=== PATIENT | male | born 1930 | race African-American/Black ===

== ENCOUNTER 2018-05-07 12:41 | Inpatient (IN) | payer MEDICARE ==
[~2018-05-07] VITALS: Ht 170.2 cm; Wt 120.7 kg
[~2018-05-07 12:41] MED LIST: ALLOPURINOL PO; ATENOLOL PO; GLIPIZIDE PO; MELOXICAM; NIFEDIPINE PO
[2018-05-07] MEDS ORDERED: HYDROCODONE/ACETAMINOPHEN 5/325MG TABLET PO ONE (13:45)
[2018-05-07] MEDS ORDERED: KETOROLAC 30MG/ML VIAL IM ONE (13:45)
[2018-05-07 15:03] LABS: CHLORIDE 111 mEq/L (98-107)
[2018-05-07 15:10] LABS: BASOPHILS % 0.5 % (0.0-2.0); EOSINOPHILS % 1.3 % (0.0-5.0); HEMATOCRIT. 30.2 % (42.0-52.0); HEMOGLOBIN. 10.4 g/dL (14.0-18.0); LYMPHOCYTES % 14.6 % (20.0-50.0); MEAN CORPUSCULAR HEMOGLOBIN 28.9 pg (28.0-32.0); MEAN CORPUSCULAR VOLUME 84.3 fL (80.0-94.0); MEAN PLATELET VOLUME 9.5 fl (7.4-10.4); MONOCYTES % 6.8 % (2.0-8.0); NEUTROPHILS % 76.8 % (40.0-76.0); PLATELET 249 x1000/uL (130-400); RED BLOOD CELL COUNT 3.59 mill/uL (4.7-6.1); RED CELL DISTRIBUTION WIDTH 16.7 % (11.6-14.6)
[2018-05-07 15:26] LABS: PARTIAL THROMBOPLASTIN TIME 109.1 sec (23.4-31.0)
[2018-05-07] MEDS ORDERED: ACETAMINOPHEN 325MG TABLET PO PRN (19:00)
[2018-05-07] MEDS ORDERED: DOCUSATE SODIUM 100MG CAPSULE PO PRN (19:00)
[2018-05-07] MEDS ORDERED: ONDANSETRON HCL 4MG/2ML INJ IV PRN (19:00)
[2018-05-07] MEDS ORDERED: SODIUM CHLORIDE 0.45% 1,000 ML IV SCH (20:52)
[2018-05-07 21:28] LABS: BG BASE EXCESS -6.5 mmol/L (-2.0-2.0); BG CARBOXYHEMOGLOBIN 0.3 % (0.5-1.5); BG DEOXYHEMOGLOBIN 5.5 % (0.0-5.0); BG FRACTION INSPIRED OXYGEN 21; BG HCO3 ACT 19.3 mmol/L (22.0-26.0); BG METHEMOGLOBIN 0.3 % (0.0-1.5); BG OXYGEN SATURATION 94.5 % (92.0-98.5); BG OXYHEMOGLOBIN 93.9 % (94.0-97.0); BG PCO2 39.3 mmHg (35.0-45.0); BG PH 7.308 (7.350-7.450); BG PO2 78.7 mmHg (75.0-100.0); BG SAMPLE SITE RIGHT RADIAL; BG TOTAL HEMOGLOBIN 10.5 g/dL (12.0-18.0); BG VENT MODE ROOM AIR
[2018-05-07 22:00] VITALS: BP_SYST 172; BP_SYST 174; BP_DIAS 90
[2018-05-07] MEDS ORDERED: IPRATROPIUM/ALBUTEROL 0.5-3(2.5)MG/3ML NEB HHN NR (23:00)
[2018-05-07] MEDS: ATENOLOL 50 MG TABLET PO SCH (23:46)
[2018-05-07] MEDS: NIFEDIPINE XL 60MG TAB PO SCH (23:47)
[2018-05-08] VITALS: BP 155/66
[2018-05-08] MEDS ORDERED: LEVOFLOXACIN 500MG PREMIX 100 ML IV NR
[2018-05-08] MEDS: IPRATROPIUM/ALBUTEROL 0.5-3(2.5)MG/3ML NEB HHN SCH ×2 (04:48→15:19)
[2018-05-08 05:45] VITALS: BP 155/70
[2018-05-08] MEDS ORDERED: DEXTROSE 50% WATER 50ML SYRINGE IV PRN (06:00)
[2018-05-08] MEDS: BLOOD SUGAR DIAGNOSTIC STRIP TEST SCH ×2 (06:30→11:33)
[2018-05-08] MEDS: INSULIN LISPRO 100 UNITS/ML SUBCUT SCH ×2 (06:31→12:10)
[2018-05-08] MEDS: SODIUM CHLORIDE 0.9% INJ 3ML FLUSH IVF SCH ×2 (06:33→14:01)
[2018-05-08 06:44] LABS: HEMATOCRIT. 30.4 % (42.0-52.0); HEMOGLOBIN. 10.3 g/dL (14.0-18.0); MEAN CORPUSCULAR HEMOGLOBIN 28.9 pg (28.0-32.0); MEAN PLATELET VOLUME 9.5 fl (7.4-10.4); PLATELET 237 x1000/uL (130-400); RED BLOOD CELL COUNT 3.57 mill/uL (4.7-6.1); RED CELL DISTRIBUTION WIDTH 17.1 % (11.6-14.6)
[2018-05-08 07:09] LABS: PHOSPHORUS 5.1 mg/dL (2.5-4.9)
[2018-05-08 08:05] VITALS: BP 151/56
[2018-05-08] MEDS ORDERED: ALLOPURINOL 100 MG TABLET PO SCH (09:00)
[2018-05-08] MEDS ORDERED: FAMOTIDINE 20MG/2ML VIAL IV SCH (09:00)
[2018-05-08] MEDS ORDERED: BUDESONIDE 0.5MG/2ML NEB HHN SCH (09:00)
[2018-05-08] MEDS: NIFEDIPINE XL 60MG TAB PO SCH (09:10)
[2018-05-08] MEDS: ATENOLOL 50 MG TABLET PO SCH (09:11)
[2018-05-08 11:15] LABS: CLARITY URINE TURBID (CLEAR); COLOR URINE YELLOW (YELLOW); KETONES URINE NEGATIVE (NEGATIVE); LEUKOCYTE ESTERASE URINE 3+ (NEGATIVE); NITRITE URINE NEGATIVE (NEGATIVE); OCCULT BLOOD URINE 2+ (NEGATIVE); PROTEIN URINE 3+ (NEGATIVE); SPECIFIC GRAVITY URINE 1.015 (1.005-1.030); UROBILINOGEN URINE 0.2 E.U./dL (0.2-1.0)
[2018-05-08 11:57] LABS: *AMPHETAMINES SCREEN URINE NEGATIVE (NEGATIVE); *BARBITURATES SCREEN URINE NEGATIVE (NEGATIVE)
[2018-05-08 11:58] LABS: *BENZODIAZEPINES SCREEN URINE NEGATIVE (NEGATIVE); *COCAINE SCREEN URINE NEGATIVE (NEGATIVE); CANNABINOID URINE SCREEN NEGATIVE (NEGATIVE); OPIATES URINE SCREEN PRESUMTIVE POSITIVE (NEGATIVE); PHENCYCLIDINE URINE SCREEN NEGATIVE (NEGATIVE)
[2018-05-08 12:05] VITALS: BP_SYST 137; BP_SYST 146; BP_DIAS 55; BP_DIAS 59
[2018-05-08 12:12] LABS: METHADONE URINE SCREEN NEGATIVE (NEGATIVE)
[2018-05-08 12:49] LABS: PLATELET ESTIMATE NORMAL
[2018-05-08 16:02] VITALS: BP 146/65
[2018-05-08 16:40] VITALS: BP 146/65
[2018-05-08] MEDS ORDERED: SODIUM BICARBONATE 650 MG TABLET PO SCH (17:00)
[2018-05-08] MEDS ORDERED: NIFEDIPINE XL 60MG TAB PO SCH (17:00)
[2018-05-08] MEDS ORDERED: HYDRALAZINE HCL 25MG TABLET PO SCH (21:00)
[2018-05-08] MEDS ORDERED: GABAPENTIN 100MG CAPSULE PO SCH (21:00)
[2018-05-09] MEDS ORDERED: FUROSEMIDE 40MG TABLET PO SCH (09:00)
[2018-05-09] MEDS ORDERED: ALLOPURINOL 100 MG TABLET PO SCH (09:00)
[2018-05-09] MEDS ORDERED: FOLIC ACID/VITAMIN B COMP W-C TABLET PO SCH (09:00)
[2018-05-10] MEDS ORDERED: LEVOFLOXACIN 250MG PREMIX 50 ML IV SCH
[2018-05-12 09:06] LABS: FACTOR IX ACTIVITY 142 % (60-177); FACTOR VIII ACTIVITY 159 % (57-163); VON WILLEBRAND FACTOR ANTIGEN 277 % (50-200)
== END 2018-05-08 17:35 | disposition home or self-care (01) | DRG 682 ==
LOC: ER 12:41 → 6EST 17:41 → EDBEDREQ 17:43 → EDBEDREQTM 17:43 → SUPCPDRO 19:26 → ENRESERV 20:39 → 6WST 05-08 05:15
PROVIDERS: ADMIT Internal Medicine; ATTEND Internal Medicine
DX: N17.9 Acute kidney failure, unspecified (principal); I50.23 Acute on chronic systolic (congestive) heart failure; N39.0 Urinary tract infection, site not specified; J44.1 Chronic obstructive pulmonary disease with (acute) exacerbation; I13.2 Hypertensive heart and chronic kidney disease with heart failure and with stage 5 chronic kidney disease, or end stage renal disease; R65.10 Systemic inflammatory response syndrome (SIRS) of non-infectious origin without acute organ dysfunction; R07.89 Other chest pain; D63.8 Anemia in other chronic diseases classified elsewhere; E11.22 Type 2 diabetes mellitus with diabetic chronic kidney disease; E11.65 Type 2 diabetes mellitus with hyperglycemia; D64.9 Anemia, unspecified; M10.9 Gout, unspecified; D72.829 Elevated white blood cell count, unspecified; E66.01 Morbid (severe) obesity due to excess calories; E87.5 Hyperkalemia; F17.200 Nicotine dependence, unspecified, uncomplicated; H54.61 Unqualified visual loss, right eye, normal vision left eye; I25.10 Atherosclerotic heart disease of native coronary artery without angina pectoris; I35.0 Nonrheumatic aortic (valve) stenosis; K76.0 Fatty (change of) liver, not elsewhere classified; N18.9 Chronic kidney disease, unspecified; R79.1 Abnormal coagulation profile; Z83.3 Family history of diabetes mellitus; Z88.0 Allergy status to penicillin; V89.2XXA Person injured in unspecified motor-vehicle accident, traffic, initial encounter; Y93.89 Activity, other specified; Y92.89 Other specified places as the place of occurrence of the external cause; Y99.8 Other external cause status
CPT/HCPCS: 36415; 36600; 71045; 71110; 76700; 80048; 80305; 82375; 82805; 82962; 83735; 83880; 84100; 84443; 84484; 84550; 85240; 85246; 85247; 85250; 85270; 85732; 86038; 87804; 93005; 93306; 93970; 94640; 96372; 97162; 99285; J1885; J1956; J3490; J7620; J7626

== ENCOUNTER 2018-09-16 16:51 | Inpatient (IN) | payer MEDICARE ==
[~2018-09-16] VITALS: Ht 167.6 cm; Wt 120.3 kg
[~2018-09-16 16:51] MED LIST changes: -MELOXICAM
[2018-09-16 17:29] LABS: BASOPHILS % 2.2 % (0.0-2.0); EOSINOPHILS % 2.6 % (0.0-5.0); HEMATOCRIT. 28.3 % (42.0-52.0); HEMOGLOBIN. 9.5 g/dL (14.0-18.0); LYMPHOCYTES % 18.7 % (20.0-50.0); MEAN CORPUSCULAR HEMOGLOBIN 28.3 pg (28.0-32.0); MEAN CORPUSCULAR VOLUME 83.9 fL (80.0-94.0); MEAN PLATELET VOLUME 9.4 fl (7.4-10.4); MONOCYTES % 7.6 % (2.0-8.0); NEUTROPHILS % 68.9 % (40.0-76.0); PLATELET 283 x1000/uL (130-400); RED BLOOD CELL COUNT 3.37 mill/uL (4.7-6.1); RED CELL DISTRIBUTION WIDTH 17.2 % (11.6-14.6)
[2018-09-16 17:33] LABS: CHLORIDE 113 mEq/L (98-107)
[2018-09-16] MEDS: LEVOFLOXACIN 750MG PREMIX 150 ML IV NR ×2 (18:00→19:16)
[2018-09-16] MEDS ORDERED: FUROSEMIDE 40MG/4ML VIAL IVP NR ×2 (18:00→22:54)
[2018-09-16] MEDS ORDERED: ASPIRIN 81MG TABLET PO NR (18:00)
[2018-09-16] MEDS ORDERED: IPRATROPIUM/ALBUTEROL 0.5-3(2.5)MG/3ML NEB INH PRN (18:30)
[2018-09-16] MEDS ORDERED: DOCUSATE SODIUM 100MG CAPSULE PO PRN (18:30)
[2018-09-16] MEDS ORDERED: ACETAMINOPHEN 325MG TABLET PO PRN (18:30)
[2018-09-16] MEDS ORDERED: BUDESONIDE 0.5MG/2ML NEB HHN NR (19:00)
[2018-09-16] MEDS ORDERED: ENOXAPARIN 30MG/0.3ML SYR SUBCUT NR (19:00)
[2018-09-16] MEDS ORDERED: SODIUM BICARBONATE 50 MEQ in DEXTROSE 5% WATER 1,000 ML IV SCH (22:00)
[2018-09-16 22:45] VITALS: BP 162/88
[2018-09-16 23:00] VITALS: BP 162/88
[2018-09-16] MEDS: FAMOTIDINE 20MG TABLET PO SCH (23:53)
[2018-09-16] MEDS: NIFEDIPINE XL 30MG TAB PO SCH (23:54)
[2018-09-17] VITALS (7 sets, daily range): BP systolic 116–150; BP diastolic 53–80
[2018-09-17 06:17] LABS: MEAN CORPUSCULAR HEMOGLOBIN 27.9 pg (28.0-32.0); MEAN CORPUSCULAR VOLUME 83.9 fL (80.0-94.0); MEAN PLATELET VOLUME 10.4 fl (7.4-10.4); PLATELET 287 x1000/uL (130-400); RED BLOOD CELL COUNT 3.22 mill/uL (4.7-6.1); RED CELL DISTRIBUTION WIDTH 17.1 % (11.6-14.6)
[2018-09-17] MEDS: SODIUM CHLORIDE 0.9% INJ 3ML FLUSH IVF SCH ×3 (06:22→22:00)
[2018-09-17 06:57] LABS: VITAMIN B12 SERUM 639 pg/mL (211-911)
[2018-09-17 07:00] LABS: FOLIC ACID (FOLATE) SERUM > 20.00 ng/mL (>5.38)
[2018-09-17 07:48] LABS: PLATELET ESTIMATE NORMAL
[2018-09-17] MEDS ORDERED: DEXTROSE 50% WATER 50ML SYRINGE IV PRN (08:45)
[2018-09-17] MEDS: NIFEDIPINE XL 30MG TAB PO SCH (09:00)
[2018-09-17] MEDS ORDERED: ALLOPURINOL 300 MG TABLET PO SCH ×2 (09:00)
[2018-09-17] MEDS ORDERED: HYDRALAZINE HCL 50MG TABLET PO SCH (09:00)
[2018-09-17] MEDS ORDERED: NIFEDIPINE XL 30MG TAB PO SCH ×2 (09:00→10:00)
[2018-09-17] MEDS ORDERED: NIFEDIPINE XL 60MG TAB PO SCH (09:30)
[2018-09-17] MEDS: ENOXAPARIN 40MG/0.4ML SYR SUBCUT SCH (09:34)
[2018-09-17] MEDS: BUDESONIDE 0.5MG/2ML NEB HHN SCH ×2 (10:10→21:33)
[2018-09-17 10:29] LABS: BG BASE EXCESS -4.3 mmol/L (-2.0-2.0); BG CARBOXYHEMOGLOBIN 0.3 % (0.5-1.5); BG DEOXYHEMOGLOBIN 5.3 % (0.0-5.0); BG FRACTION INSPIRED OXYGEN 21; BG HCO3 ACT 20.1 mmol/L (22.0-26.0); BG METHEMOGLOBIN 0.2 % (0.0-1.5); BG OXYGEN SATURATION 94.7 % (92.0-98.5); BG OXYHEMOGLOBIN 94.2 % (94.0-97.0); BG PCO2 33.9 mmHg (35.0-45.0); BG PH 7.391 (7.350-7.450); BG PO2 74.4 mmHg (75.0-100.0); BG SAMPLE SITE RIGHT RADIAL; BG TOTAL HEMOGLOBIN 8.8 g/dL (12.0-18.0); BG VENT MODE ROOM AIR
[2018-09-17] MEDS: METOLAZONE 2.5MG TABLET PO SCH (10:49)
[2018-09-17 12:02] LABS: CLARITY URINE CLEAR (CLEAR); COLOR URINE YELLOW (YELLOW); KETONES URINE NEGATIVE (NEGATIVE); LEUKOCYTE ESTERASE URINE TRACE (NEGATIVE); NITRITE URINE NEGATIVE (NEGATIVE); OCCULT BLOOD URINE TRACE (NEGATIVE); PROTEIN URINE 3+ (NEGATIVE); SPECIFIC GRAVITY URINE 1.011 (1.005-1.030); UROBILINOGEN URINE 0.2 E.U./dL (0.2-1.0)
[2018-09-17] MEDS: BLOOD SUGAR DIAGNOSTIC STRIP TEST SCH ×3 (12:10→20:21)
[2018-09-17] MEDS: INSULIN LISPRO 100 UNITS/ML SUBCUT SCH ×3 (12:40→20:29)
[2018-09-17] MEDS: HYDRALAZINE HCL 25MG TABLET PO SCH ×2 (13:46→20:26)
[2018-09-17] MEDS: IRON SUCROSE COMPLEX 100 MG/5 ML ML IV SCH (13:56)
[2018-09-17] MEDS: FAMOTIDINE 20MG TABLET PO SCH (20:26)
[2018-09-17] MEDS: NIFEDIPINE XL 60MG TAB PO SCH (20:26)
[2018-09-18 04:00] VITALS: BP 133/72
[2018-09-18] MEDS: BLOOD SUGAR DIAGNOSTIC STRIP TEST SCH (05:30)
[2018-09-18] MEDS: INSULIN LISPRO 100 UNITS/ML SUBCUT SCH (05:47)
[2018-09-18] MEDS: HYDRALAZINE HCL 25MG TABLET PO SCH (05:47)
[2018-09-18] MEDS: SODIUM CHLORIDE 0.9% INJ 3ML FLUSH IVF SCH ×2 (05:48→17:54)
[2018-09-18 06:48] LABS: HEMATOCRIT. 26.1 % (42.0-52.0); MEAN CORPUSCULAR HEMOGLOBIN 28.8 pg (28.0-32.0); MEAN CORPUSCULAR VOLUME 83.1 fL (80.0-94.0); PLATELET 272 x1000/uL (130-400); RED BLOOD CELL COUNT 3.14 mill/uL (4.7-6.1); RED CELL DISTRIBUTION WIDTH 17.4 % (11.6-14.6)
[2018-09-18 08:00] VITALS: BP 146/78
[2018-09-18 08:17] LABS: PHOSPHORUS 3.5 mg/dL (2.5-4.9)
[2018-09-18] MEDS: IPRATROPIUM/ALBUTEROL 0.5-3(2.5)MG/3ML NEB INH SCH ×4 (08:59→20:59)
[2018-09-18] MEDS: BUDESONIDE 0.5MG/2ML NEB HHN SCH ×2 (08:59→20:59)
[2018-09-18 09:22] LABS: NUCLEATED RED BLOOD CELLS 1 /100 WBC; PLATELET ESTIMATE NORMAL
[2018-09-18] MEDS: METOLAZONE 2.5MG TABLET PO SCH (10:09)
[2018-09-18] MEDS: ALLOPURINOL 100 MG TABLET PO SCH (10:09)
[2018-09-18] MEDS: NIFEDIPINE XL 60MG TAB PO SCH ×2 (10:09→21:00)
[2018-09-18] MEDS: IRON SUCROSE COMPLEX 100 MG/5 ML ML IV SCH (10:10)
[2018-09-18] MEDS: ENOXAPARIN 40MG/0.4ML SYR SUBCUT SCH (10:18)
[2018-09-18] MEDS ORDERED: POTASSIUM CHLORIDE 20MEQ TABLET SR PO NR (11:45)
[2018-09-18 12:00] VITALS: BP 131/81
[2018-09-18] MEDS ORDERED: SORBITOL 70% SOLN 30ML PO NR (12:15)
[2018-09-18] MEDS: CARVEDILOL 6.25 MG TABLET PO SCH ×2 (12:41→21:00)
[2018-09-18] MEDS ORDERED: HYDRALAZINE HCL 50MG TABLET PO SCH (14:00)
[2018-09-18 16:00] VITALS: BP 126/74
[2018-09-18] MEDS ORDERED: LEVOFLOXACIN 500MG PREMIX 100 ML IV SCH (18:00)
[2018-09-18 19:48] VITALS: BP 133/70
[2018-09-18] MEDS ORDERED: FAMOTIDINE 20MG TABLET PO SCH (21:00)
[2018-09-19] VITALS: BP 120/70
[2018-09-19] MEDS: IPRATROPIUM/ALBUTEROL 0.5-3(2.5)MG/3ML NEB INH SCH ×5 (01:21→16:25)
[2018-09-19 04:00] VITALS: BP 128/69
[2018-09-19] MEDS: SODIUM CHLORIDE 0.9% INJ 3ML FLUSH IVF SCH (06:25)
[2018-09-19 07:13] LABS: HEMATOCRIT. 26.2 % (42.0-52.0); MEAN CORPUSCULAR HEMOGLOBIN 28.4 pg (28.0-32.0); MEAN CORPUSCULAR VOLUME 82.7 fL (80.0-94.0); MEAN PLATELET VOLUME 10.4 fl (7.4-10.4); PLATELET 274 x1000/uL (130-400); RED BLOOD CELL COUNT 3.17 mill/uL (4.7-6.1)
[2018-09-19] MEDS: BUDESONIDE 0.5MG/2ML NEB HHN SCH (08:26)
[2018-09-19] MEDS: IRON SUCROSE COMPLEX 100 MG/5 ML ML IV SCH (10:12)
[2018-09-19] MEDS: CARVEDILOL 6.25 MG TABLET PO SCH (10:13)
[2018-09-19] MEDS: NIFEDIPINE XL 60MG TAB PO SCH (10:14)
[2018-09-19] MEDS: METOLAZONE 2.5MG TABLET PO SCH (10:14)
[2018-09-19] MEDS: ALLOPURINOL 100 MG TABLET PO SCH (10:15)
[2018-09-19] MEDS: ENOXAPARIN 40MG/0.4ML SYR SUBCUT SCH (10:15)
[2018-09-19] MEDS ORDERED: ONDANSETRON HCL 4MG TABLET PO PRN (10:30)
[2018-09-19] MEDS ORDERED: ONDANSETRON HCL 4MG/2ML INJ IV PRN (10:45)
[2018-09-19 11:15] LABS: NUCLEATED RED BLOOD CELLS 1 /100 WBC
[2018-09-19 11:16] LABS: PLATELET ESTIMATE NORMAL
[2018-09-19 12:00] VITALS: BP 138/63
[2018-09-19] MEDS ORDERED: METHYLPREDNISOLONE SOD SUCC 40 MG/ML VIAL IV SCH (13:00)
[2018-09-19 15:57] VITALS: BP 134/72
[2018-09-19 16:00] VITALS: BP 132/57
== END 2018-09-19 19:15 | DRG 193 ==
LOC: ER 16:51 → 8WST 18:09 → ENRESERV 21:49
PROVIDERS: ADMIT Ophthalmology; ATTEND Ophthalmology
DX: J18.9 Pneumonia, unspecified organism (principal); N17.0 Acute kidney failure with tubular necrosis; N18.5 Chronic kidney disease, stage 5; E87.0 Hyperosmolality and hypernatremia; Z68.41 Body mass index [BMI] 40.0-44.9, adult; I13.2 Hypertensive heart and chronic kidney disease with heart failure and with stage 5 chronic kidney disease, or end stage renal disease; J44.0 Chronic obstructive pulmonary disease with (acute) lower respiratory infection; J44.1 Chronic obstructive pulmonary disease with (acute) exacerbation; E66.2 Morbid (severe) obesity with alveolar hypoventilation; R65.10 Systemic inflammatory response syndrome (SIRS) of non-infectious origin without acute organ dysfunction; E78.5 Hyperlipidemia, unspecified; D64.9 Anemia, unspecified; K59.00 Constipation, unspecified; I27.20 Pulmonary hypertension, unspecified; M10.9 Gout, unspecified; I50.9 Heart failure, unspecified; E11.22 Type 2 diabetes mellitus with diabetic chronic kidney disease; E11.40 Type 2 diabetes mellitus with diabetic neuropathy, unspecified; H54.61 Unqualified visual loss, right eye, normal vision left eye; I25.10 Atherosclerotic heart disease of native coronary artery without angina pectoris; I35.2 Nonrheumatic aortic (valve) stenosis with insufficiency; M06.9 Rheumatoid arthritis, unspecified; Z79.4 Long term (current) use of insulin; Z82.49 Family history of ischemic heart disease and other diseases of the circulatory system; Z87.01 Personal history of pneumonia (recurrent); Z87.891 Personal history of nicotine dependence; Z88.0 Allergy status to penicillin; Z79.899 Other long term (current) drug therapy
CPT/HCPCS: 36415; 36600; 71045; 80048; 80061; 82375; 82607; 82746; 82805; 82962; 83036; 83540; 83550; 83735; 83880; 84100; 84443; 84484; 87070; 87804; 93005; 93306; 94640; 96365; 96375; 97162; 97166; 99285; C1893; J1650; J1940; J1956; J2405; J2920; J3490; J7070; J7620; J7626

== ENCOUNTER 2018-11-06 05:33 | Emergency (ER) | payer MEDICARE ==
[~2018-11-06] VITALS: Ht 172.7 cm; Wt 100.0 kg
[2018-11-06 12:07] VITALS: BP 151/79
== END 2018-11-06 12:07 | disposition home or self-care (01) ==
LOC: ER 05:33
DX: D49.89 Neoplasm of unspecified behavior of other specified sites (principal); H57.89 Other specified disorders of eye and adnexa; I11.0 Hypertensive heart disease with heart failure; I50.9 Heart failure, unspecified; E11.9 Type 2 diabetes mellitus without complications; Z88.0 Allergy status to penicillin; Z79.899 Other long term (current) drug therapy; W06.XXXA Fall from bed, initial encounter; Y93.89 Activity, other specified; Y92.89 Other specified places as the place of occurrence of the external cause; Y99.8 Other external cause status
CPT/HCPCS: 99284

== ENCOUNTER 2019-03-29 09:38 | Inpatient (IN) | payer MEDICARE ==
[~2019-03-29] VITALS: Ht 170.2 cm; Wt 98.2 kg
[2019-03-29 10:52] LABS: MEAN CORPUSCULAR VOLUME 86.7 fL (80.0-94.0); MEAN PLATELET VOLUME 9.9 fl (7.4-10.4); PLATELET 423 x1000/uL (130-400); RED BLOOD CELL COUNT 2.77 mill/uL (4.7-6.1); RED CELL DISTRIBUTION WIDTH 17.4 % (11.6-14.6)
[2019-03-29 11:01] LABS: CHLORIDE 111 mEq/L (98-107)
[2019-03-29 11:20] LABS: NUCLEATED RED BLOOD CELLS 3 /100 WBC
[2019-03-29 11:21] LABS: PLATELET ESTIMATE INCREASED
[2019-03-29 11:41] LABS: CLARITY URINE CLOUDY (CLEAR); COLOR URINE YELLOW (YELLOW); KETONES URINE NEGATIVE (NEGATIVE); LEUKOCYTE ESTERASE URINE 3+ (NEGATIVE); NITRITE URINE NEGATIVE (NEGATIVE); OCCULT BLOOD URINE NEGATIVE (NEGATIVE); PROTEIN URINE 1+ (NEGATIVE); SPECIFIC GRAVITY URINE 1.011 (1.005-1.030); UROBILINOGEN URINE 0.2 E.U./dL (0.2-1.0)
[2019-03-29] MEDS ORDERED: LEVOFLOXACIN 750MG PREMIX 150 ML IV ONE (13:15)
[2019-03-29 15:58] LABS: FERRITIN 501 ng/mL (22-322)
[2019-03-29 15:59] LABS: VITAMIN B12 SERUM 789 pg/mL (211-911)
[2019-03-29 16:55] VITALS: BP 115/76
[2019-03-29 17:00] VITALS: BP 115/76
[2019-03-29] MEDS ORDERED: PIPERACILLIN/TAZ 3.375G PREMIX 50 ML IV SCH (18:00)
[2019-03-29] MEDS ORDERED: ACETAMINOPHEN 650MG/20.3ML UDC GT PRN (18:00)
[2019-03-29] MEDS: ATENOLOL 50 MG TABLET PO SCH (19:08)
[2019-03-29 20:22] LABS: BASOPHILS % 1.1 % (0.0-2.0); EOSINOPHILS % 1.4 % (0.0-5.0); LYMPHOCYTES % 15.9 % (20.0-50.0); MEAN CORPUSCULAR HEMOGLOBIN 28.4 pg (28.0-32.0); MEAN CORPUSCULAR VOLUME 86.1 fL (80.0-94.0); MEAN PLATELET VOLUME 8.2 fl (7.4-10.4); MONOCYTES % 7.7 % (2.0-8.0); NEUTROPHILS % 73.9 % (40.0-76.0); PLATELET 267 x1000/uL (130-400); RED BLOOD CELL COUNT 2.41 mill/uL (4.7-6.1); RED CELL DISTRIBUTION WIDTH 17.5 % (11.6-14.6)
[2019-03-29 20:39] LABS: HEMATOCRIT. 20.7 % (42.0-52.0); HEMOGLOBIN. 6.8 g/dL (14.0-18.0)
[2019-03-29] MEDS: EPOETIN ALFA 10000UNITS/ML VIAL SUBCUT SCH (22:01)
[2019-03-29] MEDS: SODIUM CHLORIDE 0.9% INJ 3ML FLUSH IVF SCH (22:05)
[2019-03-30 00:42] VITALS: BP 147/74
[2019-03-30 04:00] VITALS: BP 139/66
[2019-03-30] MEDS: SODIUM CHLORIDE 0.9% INJ 3ML FLUSH IVF SCH ×3 (06:42→22:00)
[2019-03-30 06:58] LABS: HEMATOCRIT. 22.7 % (42.0-52.0); HEMOGLOBIN. 7.8 g/dL (14.0-18.0); MEAN CORPUSCULAR HEMOGLOBIN 30.5 pg (28.0-32.0); MEAN CORPUSCULAR VOLUME 88.2 fL (80.0-94.0); MEAN PLATELET VOLUME 8.9 fl (7.4-10.4); PLATELET 242 x1000/uL (130-400); RED BLOOD CELL COUNT 2.57 mill/uL (4.7-6.1); RED CELL DISTRIBUTION WIDTH 17.4 % (11.6-14.6)
[2019-03-30 07:27] LABS: PHOSPHORUS 3.4 mg/dL (2.5-4.9)
[2019-03-30 08:00] VITALS: BP 127/58
[2019-03-30] MEDS: ATENOLOL 50 MG TABLET PO SCH (09:07)
[2019-03-30] MEDS: NIFEDIPINE XL 60MG TAB PO SCH (09:07)
[2019-03-30] MEDS: ALLOPURINOL 100 MG TABLET PO SCH (09:07)
[2019-03-30 09:16] LABS: NUCLEATED RED BLOOD CELLS 30 /100 WBC; PLATELET ESTIMATE NORMAL
[2019-03-30 11:35] VITALS: BP 125/54
[2019-03-30 16:00] VITALS: BP 118/50
[2019-03-30 20:21] LABS: HEPATITIS B SURFACE AB < 3.1 mIU/mL
[2019-03-30 20:32] LABS: HEPATITIS B SURFACE ANTIGEN NEGATIVE
[2019-03-30] MEDS ORDERED: DEXTROSE 50% WATER 50ML SYRINGE IV PRN (22:00)
[2019-03-30] MEDS ORDERED: IOHEXOL-300 100 ML BOTTLE ONE (22:12)
[2019-03-31] VITALS (13 sets, daily range): BP systolic 104–152; BP diastolic 49–80
[2019-03-31] MEDS: SODIUM CHLORIDE 0.9% INJ 3ML FLUSH IVF SCH ×2 (06:57→14:00)
[2019-03-31] MEDS: INSULIN LISPRO 100 UNITS/ML SUBCUT SCH ×4 (06:57→21:00)
[2019-03-31] MEDS: BLOOD SUGAR DIAGNOSTIC STRIP TEST SCH ×4 (06:57→21:00)
[2019-03-31 07:19] LABS: PHOSPHORUS 3.9 mg/dL (2.5-4.9)
[2019-03-31 07:54] LABS: HEMATOCRIT. 21.3 % (42.0-52.0); HEMOGLOBIN. 7.3 g/dL (14.0-18.0); MEAN CORPUSCULAR HEMOGLOBIN 29.7 pg (28.0-32.0); MEAN CORPUSCULAR VOLUME 86.4 fL (80.0-94.0); MEAN PLATELET VOLUME 9.3 fl (7.4-10.4); PLATELET 288 x1000/uL (130-400); RED BLOOD CELL COUNT 2.46 mill/uL (4.7-6.1); RED CELL DISTRIBUTION WIDTH 17.3 % (11.6-14.6)
[2019-03-31] MEDS: NIFEDIPINE XL 60MG TAB PO SCH (10:01)
[2019-03-31] MEDS: ATENOLOL 50 MG TABLET PO SCH (10:02)
[2019-03-31] MEDS: ALLOPURINOL 100 MG TABLET PO SCH (10:02)
[2019-03-31] MEDS: LEVOFLOXACIN 250MG PREMIX 50 ML IV SCH (10:02)
[2019-03-31] MEDS ORDERED: SODIUM BICARBONATE 4% (2.4MEQ) 5ML VIAL IV ONE (12:45)
[2019-03-31] MEDS ORDERED: HEPARIN 1000 UNITS/ML 10ML ONE (12:46)
[2019-03-31] MEDS ORDERED: LIDOCAINE HCL/EPINEPHRINE 1%-EPI 1:100,000 20 ML VIAL ONE (12:48)
[2019-03-31] MEDS ORDERED: FENTANYL CITRATE/PF 50MCG/ML 2ML VIAL ONE (13:59)
[2019-03-31 14:17] LABS: NUCLEATED RED BLOOD CELLS 6 /100 WBC; PLATELET ESTIMATE NORMAL
[2019-04-01] VITALS: BP 136/60
[2019-04-01] MEDS: SODIUM CHLORIDE 0.9% INJ 3ML FLUSH IVF SCH ×4 (00:20→21:32)
[2019-04-01] MEDS: EPOETIN ALFA 10000UNITS/ML VIAL SUBCUT SCH (00:20)
[2019-04-01 04:00] VITALS: BP 134/56
[2019-04-01] MEDS: BLOOD SUGAR DIAGNOSTIC STRIP TEST SCH ×4 (06:28→21:32)
[2019-04-01 06:46] LABS: HEMATOCRIT. 21.8 % (42.0-52.0); HEMOGLOBIN. 7.4 g/dL (14.0-18.0); MEAN CORPUSCULAR HEMOGLOBIN 28.9 pg (28.0-32.0); MEAN CORPUSCULAR VOLUME 85.3 fL (80.0-94.0); PLATELET 270 x1000/uL (130-400); RED BLOOD CELL COUNT 2.55 mill/uL (4.7-6.1); RED CELL DISTRIBUTION WIDTH 17.1 % (11.6-14.6)
[2019-04-01 07:06] LABS: CHLORIDE 109 mEq/L (98-107)
[2019-04-01 07:33] LABS: PHOSPHORUS 3.9 mg/dL (2.5-4.9)
[2019-04-01] MEDS: INSULIN LISPRO 100 UNITS/ML SUBCUT SCH ×4 (07:50→21:00)
[2019-04-01 08:11] VITALS: BP 135/57
[2019-04-01] MEDS: ALLOPURINOL 100 MG TABLET PO SCH (09:00)
[2019-04-01] MEDS: NIFEDIPINE XL 60MG TAB PO SCH (09:00)
[2019-04-01] MEDS: ATENOLOL 50 MG TABLET PO SCH (09:00)
[2019-04-01 09:06] LABS: A/G RATIO 0.9 (0.7-1.7); ALBUMIN 2.9 g/dL (2.9-4.4); ALPHA-1-GLOBULIN 0.4 g/dL (0.0-0.4); ALPHA-2-GLOBULIN 0.6 g/dL (0.4-1.0); GAMMA GLOBULINS 1.4 g/dL (0.4-1.8); GLOBULIN TOTAL 3.3 g/dL (2.2-3.9); M-SPIKE Not Observed g/dL (Not Observed); TOTAL PROTEIN SERUM 6.2 g/dL (6.0-8.5)
[2019-04-01 12:48] VITALS: BP 130/49
[2019-04-01 13:30] LABS: NUCLEATED RED BLOOD CELLS 1 /100 WBC; PLATELET ESTIMATE NORMAL
[2019-04-01 16:19] VITALS: BP 105/68
[2019-04-01] MEDS ORDERED: DIPHENHYDRAMINE 50MG/ML VIAL IV PRN (16:45)
[2019-04-01 20:40] VITALS: BP 143/53
[2019-04-02] VITALS: BP 145/58
[2019-04-02 04:00] VITALS: BP 167/62
[2019-04-02] MEDS: BLOOD SUGAR DIAGNOSTIC STRIP TEST SCH ×4 (06:43→21:57)
[2019-04-02] MEDS: SODIUM CHLORIDE 0.9% INJ 3ML FLUSH IVF SCH ×3 (06:53→21:58)
[2019-04-02 07:12] LABS: HIV SCREEN 4G Non Reactive (Non Reactive)
[2019-04-02 07:16] LABS: HEMATOCRIT. 22.2 % (42.0-52.0); HEMOGLOBIN. 7.4 g/dL (14.0-18.0); MEAN CORPUSCULAR HEMOGLOBIN 29.1 pg (28.0-32.0); MEAN CORPUSCULAR VOLUME 87.5 fL (80.0-94.0); MEAN PLATELET VOLUME 8.5 fl (7.4-10.4); PLATELET 260 x1000/uL (130-400); RED BLOOD CELL COUNT 2.53 mill/uL (4.7-6.1); RED CELL DISTRIBUTION WIDTH 17.5 % (11.6-14.6)
[2019-04-02] MEDS: INSULIN LISPRO 100 UNITS/ML SUBCUT SCH ×4 (07:50→21:57)
[2019-04-02 08:00] VITALS: BP_SYST 155; BP_SYST 156; BP_DIAS 51; BP_DIAS 55
[2019-04-02] MEDS: BUDESONIDE 0.5MG/2ML NEB HHN SCH ×3 (08:41→21:50)
[2019-04-02] MEDS: NIFEDIPINE XL 60MG TAB PO SCH ×2 (09:00→09:28)
[2019-04-02] MEDS: ATENOLOL 50 MG TABLET PO SCH ×2 (09:00→09:29)
[2019-04-02 09:20] LABS: PHOSPHORUS 3.7 mg/dL (2.5-4.9)
[2019-04-02] MEDS: ALLOPURINOL 100 MG TABLET PO SCH (09:28)
[2019-04-02] MEDS: LEVOFLOXACIN 250MG PREMIX 50 ML IV SCH (09:35)
[2019-04-02 09:42] LABS: NUCLEATED RED BLOOD CELLS 4 /100 WBC; PLATELET ESTIMATE NORMAL
[2019-04-02 12:00] VITALS: BP 155/55
[2019-04-02 16:00] VITALS: BP 147/69
[2019-04-02] MEDS ORDERED: ALBU90AE INH (16:51)
[2019-04-02] MEDS ORDERED: FLUT1AER INH (16:51)
[2019-04-02 17:29] LABS: BG BASE EXCESS -0.5 mmol/L (-2.0-2.0); BG CARBOXYHEMOGLOBIN 0.7 % (0.5-1.5); BG DEOXYHEMOGLOBIN 7.5 % (0.0-5.0); BG HCO3 ACT 24.9 mmol/L (22.0-26.0); BG METHEMOGLOBIN 0.2 % (0.0-1.5); BG OXYGEN SATURATION 92.4 % (92.0-98.5); BG OXYHEMOGLOBIN 91.6 % (94.0-97.0); BG PH 7.361 (7.350-7.450); BG PO2 64.9 mmHg (75.0-100.0); BG SAMPLE SITE RIGHT BRACHIAL; BG TOTAL HEMOGLOBIN 7.2 g/dL (12.0-18.0); BG VENT MODE ROOM AIR
[2019-04-02 20:00] VITALS: BP 163/59
[2019-04-02] MEDS: EPOETIN ALFA 10000UNITS/ML VIAL SUBCUT SCH (21:43)
[2019-04-02] MEDS: IPRATROPIUM/ALBUTEROL 0.5-3(2.5)MG/3ML NEB HHN PRN (21:51)
[2019-04-03] VITALS: BP 136/55
[2019-04-03 04:00] VITALS: BP 176/71
[2019-04-03] MEDS: SODIUM CHLORIDE 0.9% INJ 3ML FLUSH IVF SCH ×3 (06:54→22:00)
[2019-04-03] MEDS: BLOOD SUGAR DIAGNOSTIC STRIP TEST SCH ×4 (06:55→21:00)
[2019-04-03] MEDS: INSULIN LISPRO 100 UNITS/ML SUBCUT SCH ×4 (07:37→21:00)
[2019-04-03 07:38] LABS: CHLORIDE 110 mEq/L (98-107)
[2019-04-03 07:51] LABS: HEMATOCRIT. 21.7 % (42.0-52.0); HEMOGLOBIN. 7.1 g/dL (14.0-18.0); MEAN CORPUSCULAR HEMOGLOBIN 28.9 pg (28.0-32.0); MEAN CORPUSCULAR VOLUME 87.8 fL (80.0-94.0); PLATELET 259 x1000/uL (130-400); RED BLOOD CELL COUNT 2.47 mill/uL (4.7-6.1); RED CELL DISTRIBUTION WIDTH 17.4 % (11.6-14.6)
[2019-04-03 08:01] LABS: PHOSPHORUS 4.2 mg/dL (2.5-4.9)
[2019-04-03 08:17] VITALS: BP 165/60
[2019-04-03] MEDS: BUDESONIDE 0.5MG/2ML NEB HHN SCH ×2 (08:44→20:58)
[2019-04-03] MEDS: IPRATROPIUM/ALBUTEROL 0.5-3(2.5)MG/3ML NEB HHN PRN ×2 (08:44→20:58)
[2019-04-03] MEDS: NIFEDIPINE XL 60MG TAB PO SCH (09:00)
[2019-04-03] MEDS: ALLOPURINOL 100 MG TABLET PO SCH (09:04)
[2019-04-03 11:35] VITALS: BP 138/54
[2019-04-03 15:21] VITALS: BP 134/48
[2019-04-03 20:40] VITALS: BP 141/52
[2019-04-03 21:26] LABS: NUCLEATED RED BLOOD CELLS 2 /100 WBC; PLATELET ESTIMATE NORMAL
[2019-04-04 00:13] VITALS: BP 158/58
[2019-04-04 04:00] VITALS: BP 129/55
[2019-04-04] MEDS: SODIUM CHLORIDE 0.9% INJ 3ML FLUSH IVF SCH ×3 (06:33→21:57)
[2019-04-04] MEDS: INSULIN LISPRO 100 UNITS/ML SUBCUT SCH ×4 (07:38→21:00)
[2019-04-04] MEDS: BLOOD SUGAR DIAGNOSTIC STRIP TEST SCH ×4 (07:38→21:57)
[2019-04-04 08:00] LABS: HEMATOCRIT. 22.7 % (42.0-52.0); HEMOGLOBIN. 7.6 g/dL (14.0-18.0); MEAN CORPUSCULAR HEMOGLOBIN 29.2 pg (28.0-32.0); MEAN CORPUSCULAR VOLUME 87.6 fL (80.0-94.0); MEAN PLATELET VOLUME 9.2 fl (7.4-10.4); PLATELET 244 x1000/uL (130-400); RED BLOOD CELL COUNT 2.59 mill/uL (4.7-6.1); RED CELL DISTRIBUTION WIDTH 17.5 % (11.6-14.6)
[2019-04-04 08:13] VITALS: BP 133/52
[2019-04-04] MEDS: ALLOPURINOL 100 MG TABLET PO SCH (09:04)
[2019-04-04] MEDS: NIFEDIPINE XL 60MG TAB PO SCH (09:04)
[2019-04-04] MEDS: LEVOFLOXACIN 250MG PREMIX 50 ML IV SCH (09:04)
[2019-04-04] MEDS: HYDROCODONE/ACETAMINOPHEN 5/325MG TABLET PO PRN (09:07)
[2019-04-04] MEDS: IPRATROPIUM/ALBUTEROL 0.5-3(2.5)MG/3ML NEB HHN PRN (09:44)
[2019-04-04] MEDS: BUDESONIDE 0.5MG/2ML NEB HHN SCH (09:45)
[2019-04-04 12:10] VITALS: BP 131/54
[2019-04-04 13:37] LABS: NUCLEATED RED BLOOD CELLS 1 /100 WBC
[2019-04-04 13:38] LABS: PLATELET ESTIMATE NORMAL
[2019-04-04 16:01] VITALS: BP 117/66
[2019-04-04] MEDS: POLYVINYL ALCOHOL OPHTH DROPS 15ML BOTHEYE SCH (18:16)
[2019-04-04 20:00] VITALS: BP 130/83
[2019-04-05] VITALS (7 sets, daily range): BP systolic 109–136; BP diastolic 42–61
[2019-04-05] MEDS: POLYVINYL ALCOHOL OPHTH DROPS 15ML BOTHEYE SCH ×5 (01:10→23:00)
[2019-04-05] MEDS: SODIUM CHLORIDE 0.9% INJ 3ML FLUSH IVF SCH ×3 (05:53→22:59)
[2019-04-05] MEDS: BLOOD SUGAR DIAGNOSTIC STRIP TEST SCH ×4 (06:13→20:51)
[2019-04-05 07:02] LABS: HEMATOCRIT. 23.1 % (42.0-52.0); HEMOGLOBIN. 7.6 g/dL (14.0-18.0); MEAN CORPUSCULAR HEMOGLOBIN 28.7 pg (28.0-32.0); MEAN CORPUSCULAR VOLUME 87.2 fL (80.0-94.0); PLATELET 250 x1000/uL (130-400); RED BLOOD CELL COUNT 2.65 mill/uL (4.7-6.1); RED CELL DISTRIBUTION WIDTH 17.3 % (11.6-14.6)
[2019-04-05 07:31] LABS: PHOSPHORUS 5.5 mg/dL (2.5-4.9)
[2019-04-05] MEDS: INSULIN LISPRO 100 UNITS/ML SUBCUT SCH ×4 (07:50→20:51)
[2019-04-05] MEDS: NIFEDIPINE XL 60MG TAB PO SCH (10:00)
[2019-04-05] MEDS: DOCUSATE SODIUM 100MG CAPSULE PO PRN (10:01)
[2019-04-05] MEDS: ALLOPURINOL 100 MG TABLET PO SCH (10:01)
[2019-04-05] MEDS: BUDESONIDE 0.5MG/2ML NEB HHN SCH (10:37)
[2019-04-05] MEDS: MEGESTROL ACETATE 400 MG/10 ML UDC PO SCH (17:12)
[2019-04-05 17:56] LABS: PLATELET ESTIMATE NORMAL
[2019-04-05] MEDS: HYDROCODONE/ACETAMINOPHEN 5/325MG TABLET PO PRN (22:50)
[2019-04-06] VITALS: BP 132/58
[2019-04-06] MEDS: HYDROCODONE/ACETAMINOPHEN 5/325MG TABLET PO PRN (02:50)
[2019-04-06 04:00] VITALS: BP 118/73
[2019-04-06] MEDS: SODIUM CHLORIDE 0.9% INJ 3ML FLUSH IVF SCH ×3 (05:23→22:58)
[2019-04-06] MEDS: POLYVINYL ALCOHOL OPHTH DROPS 15ML BOTHEYE SCH ×4 (05:23→23:00)
[2019-04-06 06:20] LABS: HEMATOCRIT. 23.7 % (42.0-52.0); HEMOGLOBIN. 7.6 g/dL (14.0-18.0); MEAN CORPUSCULAR HEMOGLOBIN 28.2 pg (28.0-32.0); MEAN CORPUSCULAR VOLUME 87.9 fL (80.0-94.0); MEAN PLATELET VOLUME 9.5 fl (7.4-10.4); PLATELET 274 x1000/uL (130-400); RED CELL DISTRIBUTION WIDTH 17.1 % (11.6-14.6)
[2019-04-06] MEDS: BLOOD SUGAR DIAGNOSTIC STRIP TEST SCH ×4 (06:21→20:37)
[2019-04-06 06:47] LABS: PHOSPHORUS 5.3 mg/dL (2.5-4.9)
[2019-04-06] MEDS: INSULIN LISPRO 100 UNITS/ML SUBCUT SCH ×4 (07:50→20:37)
[2019-04-06 08:39] VITALS: BP 126/55
[2019-04-06] MEDS: MEGESTROL ACETATE 400 MG/10 ML UDC PO SCH ×2 (08:47→17:48)
[2019-04-06] MEDS: NIFEDIPINE XL 60MG TAB PO SCH (08:48)
[2019-04-06] MEDS: ALLOPURINOL 100 MG TABLET PO SCH (08:48)
[2019-04-06] MEDS: LEVOFLOXACIN 250MG PREMIX 50 ML IV SCH (08:56)
[2019-04-06] MEDS ORDERED: HEPARIN SODIUM 1,000 UNIT/1ML VIAL IV NR (10:45)
[2019-04-06 12:38] VITALS: BP 151/67
[2019-04-06 16:09] VITALS: BP 147/80
[2019-04-06 17:26] LABS: PLATELET ESTIMATE NORMAL
[2019-04-06 20:00] VITALS: BP 133/57
[2019-04-06] MEDS ORDERED: EPOETIN ALFA 10000UNITS/ML VIAL SUBCUT SCH (21:00)
[2019-04-06] MEDS: DOCUSATE SODIUM 100MG CAPSULE PO PRN (22:58)
[2019-04-07] VITALS (7 sets, daily range): BP systolic 104–140; BP diastolic 49–75
[2019-04-07] MEDS ORDERED: ONDANSETRON HCL 4MG/2ML INJ IV PRN (01:30)
[2019-04-07] MEDS: SODIUM CHLORIDE 0.9% INJ 3ML FLUSH IVF SCH ×2 (05:00→14:27)
[2019-04-07] MEDS: POLYVINYL ALCOHOL OPHTH DROPS 15ML BOTHEYE SCH ×3 (05:00→17:14)
[2019-04-07] MEDS: BLOOD SUGAR DIAGNOSTIC STRIP TEST SCH ×3 (07:40→17:12)
[2019-04-07 07:42] LABS: HEMATOCRIT. 22.5 % (42.0-52.0); HEMOGLOBIN. 7.4 g/dL (14.0-18.0); MEAN CORPUSCULAR HEMOGLOBIN 28.6 pg (28.0-32.0); MEAN CORPUSCULAR VOLUME 86.5 fL (80.0-94.0); MEAN PLATELET VOLUME 9.5 fl (7.4-10.4); PLATELET 261 x1000/uL (130-400); RED CELL DISTRIBUTION WIDTH 16.4 % (11.6-14.6)
[2019-04-07] MEDS: INSULIN LISPRO 100 UNITS/ML SUBCUT SCH ×3 (07:50→17:12)
[2019-04-07] MEDS: MEGESTROL ACETATE 400 MG/10 ML UDC PO SCH ×2 (09:02→17:13)
[2019-04-07] MEDS: NIFEDIPINE XL 60MG TAB PO SCH (09:03)
[2019-04-07] MEDS: DOCUSATE SODIUM 100MG CAPSULE PO PRN (09:03)
[2019-04-07] MEDS: ALLOPURINOL 100 MG TABLET PO SCH (09:03)
[2019-04-07 17:06] LABS: PLATELET ESTIMATE NORMAL
== END 2019-04-07 22:52 | DRG 551 ==
LOC: ER 09:38 → 6WST 13:06 → ENRESERV 14:26
PROVIDERS: ADMIT Internal Medicine; ATTEND Internal Medicine
PROC: 5A1D70Z Performance of Urinary Filtration, Intermittent, Less than 6 Hours Per Day (ICD-10-PCS; 2019-03-30)
PROC: 0JH63XZ Insertion of Tunneled Vascular Access Device into Chest Subcutaneous Tissue and Fascia, Percutaneous Approach (ICD-10-PCS; principal; 2019-03-31)
PROC: 02HV33Z Insertion of Infusion Device into Superior Vena Cava, Percutaneous Approach (ICD-10-PCS; 2019-03-31)
PROC: B5181ZA Fluoroscopy of Superior Vena Cava using Low Osmolar Contrast, Guidance (ICD-10-PCS; 2019-03-31)
PROC: B548ZZA Ultrasonography of Superior Vena Cava, Guidance (ICD-10-PCS; 2019-03-31)
PROC: 5A1D70Z Performance of Urinary Filtration, Intermittent, Less than 6 Hours Per Day (ICD-10-PCS; 2019-03-31)
PROC: 5A1D70Z Performance of Urinary Filtration, Intermittent, Less than 6 Hours Per Day (ICD-10-PCS; 2019-04-02)
PROC: 5A1D70Z Performance of Urinary Filtration, Intermittent, Less than 6 Hours Per Day (ICD-10-PCS; 2019-04-05)
PROC: 5A1D70Z Performance of Urinary Filtration, Intermittent, Less than 6 Hours Per Day (ICD-10-PCS; 2019-04-06)
DX: S22.089A Unspecified fracture of T11-T12 vertebra, initial encounter for closed fracture (principal); I50.43 Acute on chronic combined systolic (congestive) and diastolic (congestive) heart failure; N18.6 End stage renal disease; I13.2 Hypertensive heart and chronic kidney disease with heart failure and with stage 5 chronic kidney disease, or end stage renal disease; J44.1 Chronic obstructive pulmonary disease with (acute) exacerbation; E46 Unspecified protein-calorie malnutrition; E87.2 Acidosis; N39.0 Urinary tract infection, site not specified; N17.9 Acute kidney failure, unspecified; D63.1 Anemia in chronic kidney disease; E11.22 Type 2 diabetes mellitus with diabetic chronic kidney disease; E03.9 Hypothyroidism, unspecified; E66.9 Obesity, unspecified; E78.5 Hyperlipidemia, unspecified; H54.62 Unqualified visual loss, left eye, normal vision right eye; W18.30XA Fall on same level, unspecified, initial encounter; J44.9 Chronic obstructive pulmonary disease, unspecified; I35.0 Nonrheumatic aortic (valve) stenosis; R62.7 Adult failure to thrive; K80.20 Calculus of gallbladder without cholecystitis without obstruction; I25.10 Atherosclerotic heart disease of native coronary artery without angina pectoris; M10.9 Gout, unspecified; I27.20 Pulmonary hypertension, unspecified; M47.812 Spondylosis without myelopathy or radiculopathy, cervical region; N13.9 Obstructive and reflux uropathy, unspecified; M06.9 Rheumatoid arthritis, unspecified; Z68.33 Body mass index [BMI] 33.0-33.9, adult; W18.39XA Other fall on same level, initial encounter; Y93.89 Activity, other specified; Y92.89 Other specified places as the place of occurrence of the external cause; Y99.8 Other external cause status; Z99.2 Dependence on renal dialysis; Z88.0 Allergy status to penicillin; Z87.01 Personal history of pneumonia (recurrent); Z87.891 Personal history of nicotine dependence; Z79.899 Other long term (current) drug therapy
CPT/HCPCS: 36415; 36558; 36600; 71045; 71270; 72128; 72131; 74178; 76700; 76770; 76937; 77001; 80048; 81003; 82270; 82375; 82607; 82728; 82805; 82962; 83540; 83550; 83605; 83735; 84100; 84145; 84155; 84165; 84443; 84484; 84550; 85044; 86705; 86706; 86803; 87340; 87389; 93005; 93306; 94640; 97110; 97116; 97162; 97166; 99285; C1750; C1769; J0885; J1200; J1644; J1956; J2405; J3010; J3490; J7040; J7620; J7626; Q9967